=== PATIENT | male | born 1990 | race Caucasian/White ===

== ENCOUNTER 2020-01-25 21:32 | Emergency (ER) | payer MEDICAID ==
[~2020-01-25] VITALS: Ht 180.3 cm; Wt 97.1 kg
[2020-01-25 21:38] VITALS: Ht 180.3 cm; Wt 97.1 kg
[2020-01-25 22:42] VITALS: BP 114/63
== END 2020-01-25 22:42 | disposition home or self-care (01) ==
LOC: ED 21:32
DX: G89.29 Other chronic pain (principal); M25.531 Pain in right wrist

== ENCOUNTER → 2020-02-04 | Outpatient (CLI) | payer MEDICAID | END | disposition home or self-care (01) | LOC: RD 12:26 | DX: M93.1 Kienbock's disease of adults (principal) ==

== ENCOUNTER 2020-02-05 12:53 | Emergency (ER) | payer MEDICAID ==
[~2020-02-05] VITALS: Ht 177.8 cm; Wt 99.3 kg
[2020-02-05 13:17] VITALS: Ht 177.8 cm; Wt 99.3 kg
[2020-02-05 14:12] VITALS: BP 101/72
== END 2020-02-05 14:12 | disposition home or self-care (01) ==
LOC: ED 12:53
DX: L60.0 Ingrowing nail (principal); B07.0 Plantar wart
CPT/HCPCS: J2001

== ENCOUNTER 2020-02-27 07:41 | Emergency (ER) | payer MEDICAID, SELFPAY ==
[~2020-02-27] VITALS: Ht 180.3 cm; Wt 102.1 kg
[2020-02-27 07:44] VITALS: BP 131/77; Ht 180.3 cm; Wt 102.1 kg
== END 2020-02-27 08:33 | disposition home or self-care (01) ==
LOC: ED 07:41
DX: U07.1 COVID-19 (principal)
CPT/HCPCS: U0003

== ENCOUNTER 2020-02-28 19:37 | Emergency (ER) | payer MEDICAID, SELFPAY ==
[~2020-02-28] VITALS: Ht 180.3 cm; Wt 104.3 kg
[2020-02-28 19:39] VITALS: Ht 180.3 cm; Wt 104.3 kg
[2020-02-28 20:32] VITALS: BP 116/76
== END 2020-02-28 20:32 | disposition home or self-care (01) ==
LOC: ED 19:37
DX: U07.1 COVID-19 (principal)

== ENCOUNTER 2020-03-06 15:46 | Emergency (ER) | payer MEDICAID, SELFPAY ==
[~2020-03-06] VITALS: Ht 180.3 cm; Wt 104.3 kg
[2020-03-06 16:15] VITALS: BP 109/78; Ht 180.3 cm; Wt 104.3 kg
== END 2020-03-06 19:02 | disposition home or self-care (01) ==
LOC: ED 15:46
DX: R11.2 Nausea with vomiting, unspecified (principal); R19.7 Diarrhea, unspecified; Z20.828 Contact with and (suspected) exposure to other viral communicable diseases